=== PATIENT | male | born 1960 ===

== ENCOUNTER 2016-09-20 07:45 | Day surgery (SDC) | payer OTHER ==
[2016-09-20] MEDS ORDERED: Propofol 10 mg/ml Inj (20 ML) ONE (08:09)
[2016-09-20] MEDS ORDERED: Phenylephrine 10 mg/ml Inj ONE (08:40)
== END 2016-09-20 10:00 | disposition home or self-care (01) ==
LOC: C.ENDO 07:45
PROVIDERS: ATTEND Internal Medicine Gastroenterology
DX: Z12.11 Encounter for screening for malignant neoplasm of colon (principal); D12.2 Benign neoplasm of ascending colon; D12.5 Benign neoplasm of sigmoid colon; K57.30 Diverticulosis of large intestine without perforation or abscess without bleeding; K64.1 Second degree hemorrhoids
CPT/HCPCS: 45385; J2370; J2704